=== PATIENT | female | born 1990 | race Caucasian/White ===

== ENCOUNTER 2023-09-11 17:53 | Emergency (ER) | payer BC, SELFPAY ==
[2023-09-11 17:54] VITALS: BP 174/112; PULSE 74; RESP 16; TEMP 36.6; O2SAT 100; BMI 23.4
[2023-09-11 18:12] VITALS: BP 174/118; PULSE 70; O2SAT 99
--- NOTE | 2023-09-11 18:12 | CT_ITS ---
PROCEDURE INFORMATION: Exam: CT Abdomen And Pelvis Without Contrast Exam date and time: 09/11/2023 6:28 PM Age: 33 years old Clinical indication: Abdominal pain; Additional info: Bilateral flank pain, hematuria (h/o partial hys) TECHNIQUE: Imaging protocol: Computed tomography of the abdomen and pelvis without contrast. Radiation optimization: All CT scans at this facility use at least one of these dose optimization techniques: automated exposure control; mA and/or kV adjustment per patient size (includes targeted exams where dose is matched to clinical indication); or iterative reconstruction. REPORTING DATA: Count of CT and Cardiac NM exams in prior 12 months: This patient has received 0 known CTs and 0 known cardiac nuclear medicine studies in the 12 months prior to the current study. COMPARISON: No relevant prior studies available. FINDINGS: Liver: Normal. No mass. Gallbladder and bile ducts: Nonvisualized gallbladder, possibly surgically absent. No ductal dilation. Pancreas: Normal. No ductal dilation. Spleen: Normal. No splenomegaly. Adrenal glands: Normal. No mass. Kidneys and ureters: Normal. No hydronephrosis. Stomach and bowel: Gastric bypass. Fecalized terminal ileum. No obstruction. No mucosal thickening. Appendix: Nonvisualized, possibly surgically absent. Intraperitoneal space: Minimal free fluid within the pelvis. No free air. No significant fluid collection. Vasculature: Unremarkable. No abdominal aortic aneurysm. Lymph nodes: Unremarkable. No enlarged lymph nodes. Urinary bladder: Unremarkable as visualized. Reproductive: Unremarkable as visualized. Bones/joints: Unremarkable. No acute fracture. Soft tissues: Unremarkable. IMPRESSION: 1. No urolithiasis or hydronephrosis. 2. Fecalized terminal ileum which may be seen with delayed transit.
--- NOTE | 2023-09-11 18:14 | HMH.EDGENADL ---
Discharge Plan Disposition Patient Disposition: Home, Self-Care Prescriptions Prescriptions: New sulfamethoxazole-trimethoprim [Bactrim DS] 800-160 mg tablet 1 tab PO BID 10 Days Qty: 20 0RF Referrals Follow up/Referrals: Felipe Hsieh MD [Primary Care Provider] - See instructions Activity Restrictions/Add. Instructions Additional Instructions/Restrictions: Your gross hematuria is out of proportion to what is typically seen in urinary tract infections but certainly could be secondary to inflammation in the setting of a urinary tract infection. We will treat you for pyelonephritis which is an infection of the kidney. I recommend that you follow-up with a urologist if you are not improving and return to the emergency department with any inability to get your urine out secondary to a clot. If you have a sudden worsening or severe worsening of your symptoms or intractable nausea and vomiting please return to the emergency department as there is some diagnostic uncertainty on your CT scan given the lack of visceral fat on your CT scan for interpretation. Clinical Impressions Clinical Impression: Pyelonephritis, Gross hematuria Instructions Patient Instructions: DI for Urinary Tract Infection (UTI), DI for Urinary Tract Infection in Children Discharge ED Provider: Angelia Pedersen General Adult HPI General Chief complaint: Urogenital-Female Stated complaint: blood in urine, back pain Time Seen by Provider: 09/11/23 17:56 Mode of Arrival: Ambulatory Source of Information: Patient Limitations: No Limitations Description of Symptoms (Recalled from ER Triage Doc. by RN): Presents to ED with c/o blood in urine and diffuse lower back pain. Patient reports urinary urgenc but denies other urinary symptoms. - fever. PMH: partial hysterectomy, Crohn's, Gastric sleeve. Denies taking meds [employer]. History of Present Illness HPI narrative: Patient is a 33-year-old female who has a history of gastric sleeve Jluis-en-Y Crohn's disease and multiple kidney stones presented today with bilateral flank pain and hematuria. States it feels very similar to kidney stone she had in the past. Denies any fevers dysuria frequency or urgency. Related Data Previous Rx's Medication Instructions Recorded sulfamethoxazole 800 1 tab PO BID 10 days #20 tabs 09/11/23 mg-trimethoprim 160 mg tablet (Bactrim DS) Allergies Allergy/AdvReac Type Severity Reaction Status Date / Time celecoxib [From Celebrex] Allergy Verified 09/11/23 18:09 cephalexin [From Keflex] Allergy Verified 09/11/23 18:09 gabapentin Allergy Verified 09/11/23 18:09 Penicillins Allergy Verified 09/11/23 18:09 PFSH [facility] Disclaimer: The information contained in this section may have been updated after the patient was seen, as this information can be updated by other users. Social History Smoking Status: Never smoker alcohol intake: never current occupational status: other Travel in the last 8 weeks: None ROS Obtained: Yes All systems reviewed & no additional complaints except as documented Physical Exam General General appearance: alert Respiratory Respiratory exam: Present normal lung sounds bilaterally Cardiovascular Cardiovascular exam: Present regular rate Abdominal Exam Abdominal exam: Present soft; Absent distention or tenderness Back Exam Back exam: Absent CVA tenderness (R) or CVA tenderness (L) Neurological Exam Neurological exam: Present oriented X3 Medical Decision Making Isaak Inquiry Pt receiving controlled substance: No Vital Signs: 09/11/23 17:54 09/11/23 18:12 09/11/23 18:46 Pulse Rate 70 81 Pulse Rate [Right] 74 Respiratory Rate 16 16 Blood Pressure 174/118 H 153/104 H Blood Pressure Mean 149 120 02 Sat by Pulse Oximetry 100 99 100 Oxygen Delivery Method Room Air Lab Data Lab results reviewed: Yes I reviewed the patient's lab results. Lab Results 09/11/23 18:01: Urine Color Red, Urine A
--- NOTE | 2023-09-11 18:24 | PC.NURSE ---
pt to CT
[2023-09-11 18:25] LABS: Microscopic, Urine URINE MICROSCOPIC (MICROSCOPIC)
[2023-09-11 18:36] LABS: Appearance,Urine TURBID (Clear); Blood, Urine 3+ (Negative); Color,Urine RED (Yellow); Glucose,Urine (UA) Negative (Negative); Ketones,Urine 1+ (Negative); Leukocyte Esterase,Urine 2+ (Negative); Nitrate,Urine POSITIVE (Negative); Protein,Urine 3+ (Negative)
--- NOTE | 2023-09-11 18:42 | PC.NURSE ---
Rounded on patient; call light within reach
[2023-09-11 18:43] LABS: Bilirubin,Urine 1+ (Negative)
[2023-09-11 18:43] LABS: Chloride 102 mmol/L (98-107); Potassium 3.7 mmoL/L (3.5-5.1); Sodium 139 mmol/L (136-145)
[2023-09-11 18:46] VITALS: BP 153/104; PULSE 81; RESP 16; O2SAT 100
[2023-09-11 18:46] LABS: Alanine Aminotransferase 19 U/L (12-78); Albumin/Globulin Ratio 1.6 (1.1-1.8); Alkaline Phosphatase 62 U/L (38-126); Anion Gap 12.7 mEq/L (5-15); Aspartate Amino Transferase 35 U/L (14-36); Bilirubin,Total 0.4 mg/dl (0.2-1.3); Blood Urea Nitrogen 14 mg/dl (7-17); Calcium 8.9 mg/dl (8.4-10.2); Carbon Dioxide 28 mmol/L (22.0-30.0); Creatinine Clearance Estimated 116 mL/min (50-200); Estimated Glomerular Filt Rate 97 ml/min (>60); GFR (African American) 117 ML/MIN (>60); Globulin 3.2 g/dL (1.3-3.2); Glucose 91 mg/dl (74-100); Total Protein,Serum 8.2 g/dl (6.3-8.2)
[2023-09-11 18:50] LABS: RBC,Urine TNTC #/hpf (0-3)
[2023-09-11 18:51] LABS: Bacteria,Urine Trace /lpf; Squamous Epithelial Cell,Urine Occasional #/hpf (0-5)
[2023-09-11 18:55] LABS: Basophils # 0.1 K/mm3 (0-0.2); Basophils % 0.4 % (0.1-2.0); Eosinophils # 0.3 K/mm3 (0.0-0.4); Eosinophils % 2.2 % (0.1-12.0); Hematocrit 42.2 % (37.0-47.0); Hemoglobin 14.2 g/dL (12.2-16.2); Lymphocytes # 3.4 K/mm3 (0.7-4.5); Lymphocytes % 23.6 % (10-50); Mean Corpuscular HGB Conc 33.6 g/dL (31.8-35.4); Mean Corpuscular Hemoglobin 30.7 pg (27.0-31.2); Mean Corpuscular Volume 91.4 fl (81-99); Mean Platelet Volume 7.7 fl (7.4-10.4); Monocytes # 0.7 K/mm3 (0.1-1.0); Monocytes % 4.5 % (1.7-9.3); Neutrophils # 9.9 K/mm3 (1.8-7.8); Neutrophils % 69.2 % (37.0-80.0); Platelet Count 339 K/mm3 (142-424); Red Blood Count 4.62 M/mm3 (4.20-5.40); White Blood Count 14.3 K/mm3 (4.8-10.8)
[2023-09-11 19:20] VITALS: BP 153/104; PULSE 74; RESP 16; TEMP 36.6; O2SAT 100
== END 2023-09-11 19:23 | disposition home or self-care (01) ==
PROVIDERS: Emergency Provider Student in an Organized Health Care Education/Training Program; PCP Pediatrics
DX: N10 Acute pyelonephritis (principal); B96.29 Other Escherichia coli [E. coli] as the cause of diseases classified elsewhere; R31.0 Gross hematuria; R10.30 Lower abdominal pain, unspecified; M54.59 Other low back pain; K50.919 Crohn's disease, unspecified, with unspecified complications; Z87.442 Personal history of urinary calculi
CPT/HCPCS: 74176; 80053; 81001; 85025; 87086; 96361; 96374; 96375; 99285; J2405

== ENCOUNTER 2023-09-27 08:06 | Emergency (ER) | payer BC, SELFPAY ==
[2023-09-27 08:20] VITALS: BP 134/96; PULSE 77; RESP 18; TEMP 36.7; O2SAT 100; BMI 23.1
--- NOTE | 2023-09-27 08:39 | EXP.UTC ---
Discharge Plan Disposition Patient Disposition: Home, Self-Care Condition: Good Prescriptions Prescriptions: New azithromycin [Zithromax] 250 mg tablet 250 mg PO UD DOSE PK Qty: 6 0RF Rx Instructions: Take two (2) tablets today, then one (1) tablet days #2 thru #5 lxguicrsmpuwmmy-fdqtqilhs-TB [Bromfed DM] 2-30-10 mg/5 mL Syrup 5 ml PO Q6H PRN (Reason: Cough) Qty: 240 0RF methylprednisolone 4 mg Tablets,Dose Pack 4 mg PO DIRECTED Qty: 21 0RF ondansetron 4 mg Tablet,Disintegrating 4 mg PO Q8H PRN (Reason: Nausea) Qty: 12 0RF Referrals Follow up/Referrals: Felipe Hsieh MD [Primary Care Provider] - See instructions Activity Restrictions/Add. Instructions Additional Instructions/Restrictions: Drink plenty of fluids. Take tylenol or ibuprofen for pain or fever. Take the medications as directed. Follow up with your regular doctor. GO TO THE ER FOR ANY WORSENING SYMPTOMS Clinical Impressions Clinical Impression: Acute bronchitis Stand Alone Forms Stand Alone Forms: Work/School Release Instructions Patient Instructions: Acute Bronchitis, DI for Acute Bronchitis Discharge ED Provider: Elvis Christine [facility] General Stated complaint: head congestion,runny nose,cough,sore throat Time Seen by Provider: 09/27/23 08:39 History of Present Illness Provider Complaint: She states that for the past 5 days she has had chest congestion and a productive cough. Related Data Previous Rx's Medication Instructions Recorded azithromycin 250 mg tablet 250 mg PO UD DOSE PK #6 tabs 09/27/23 (Zithromax) vsrjbghgextpcdo-vigigicuujpotit-RT 5 ml PO Q6H PRN Cough #240 mL 09/27/23 2 mg-30 mg-10 mg/5 mL oral syrup (Bromfed DM) methylprednisolone 4 mg tablets in 4 mg PO DIRECTED #21 tabs 09/27/23 a dose pack ondansetron 4 mg disintegrating 4 mg PO Q8H PRN Nausea #12 tabs 09/27/23 tablet Allergies Allergy/AdvReac Type Severity Reaction Status Date / Time celecoxib [From Celebrex] Allergy Verified 09/27/23 08:58 cephalexin [From Keflex] Allergy Verified 09/27/23 08:58 gabapentin Allergy Verified 09/27/23 08:58 Penicillins Allergy Verified 09/27/23 08:58 [facility] Disclaimer: The information contained in this section may have been updated after the patient was seen, as this information can be updated by other users. Social History Smoking Status: Never smoker alcohol intake: never current occupational status: other Travel in the last 8 weeks: None ROS Obtained: Yes All systems reviewed & no additional complaints except as documented Constitutional Constitutional: Reports chills and Reports fever(s) Eyes Eyes: Denies eye discharge ENT Ears, Nose, Mouth, and Throat: Reports as per HPI Cardiovascular Cardiovascular: Denies chest pain Respiratory Respiratory: Denies shortness of breath, Reports chest congestion, Reports cough, Denies stridor and Denies wheezing Gastrointestinal Gastrointestingal: Reports nausea; Denies abdominal pain, constipation, cramping, diarrhea or vomiting Musculoskeletal Musculoskeletal: Denies arthralgias Integumentary/Breasts Skin/Breast: Denies rash Neurologic Neurologic: Denies paresthesias Allergic/Immunologic Allergic/Immunologic: Denies wheezing Physical Exam General General appearance: alert and in no apparent distress Eye Eye exam: Present normal appearance, PERRL and EOMI ENT ENT exam: Present mucous membranes moist and normal external ear exam Expanded ENT Exam External ear exam: Present normal external inspection TM/Canal exam: Bilateral TM: erythema and bulging Nose exam: Absent sinus tenderness Nasal speculum exam: Bilateral: normal Mouth exam: Present normal external inspection; Absent drooling Teeth exam: Present normal inspection Throat exam: Present tonsillar erythema and tonsillomegaly Neck Neck exam: Present normal inspection, full ROM and t
[2023-09-27 08:46] LABS: Apearance,Urine Clear (Clear); Blood, Urine Negative (Negative); Color,Urine Dark Yellow (Yellow); Glucose,Urine (UA) Negative (Negative); Ketones,Urine Negative (Negative); Protein,Urine 3+ (Negative); Specific Gravity, Urine 1.025 (1.005-1.030)
[2023-09-27 08:47] LABS: Bilirubin,Urine Negative (Negative); UTC Leukocyte Esterase,Urine Negative (Negative); UTC Nitrate,Urine Negative (Negative); Urobilinogen,Urine 1 EU/dl (0.2)
[2023-09-27 08:50] LABS: UTC Influenza A Antigen Negative (Negative); UTC Influenza B Antigen Negative (Negative)
[2023-09-27 09:57] VITALS: BP 134/96; PULSE 77; RESP 18; TEMP 36.7; O2SAT 100
== END 2023-09-27 09:57 | disposition home or self-care (01) ==
PROVIDERS: Emergency Provider Nurse Practitioner Family; PCP Pediatrics
DX: J20.9 Acute bronchitis, unspecified (principal); R50.9 Fever, unspecified; R05.8 Other specified cough; R09.81 Nasal congestion; R09.89 Other specified symptoms and signs involving the circulatory and respiratory systems; R07.0 Pain in throat; R11.0 Nausea
CPT/HCPCS: 81003; 87635; 87804; 99204; 99212; G0463

== ENCOUNTER 2024-06-09 08:52 | Emergency (ER) | payer BC, SELFPAY ==
[2024-06-09 09:00] VITALS: BP 144/99; PULSE 74; RESP 18; TEMP 36.5; O2SAT 100; BMI 23.1
--- NOTE | 2024-06-09 09:05 | EXP.UTC ---
Discharge Plan Disposition Patient Disposition: Home, Self-Care Condition: Good Prescriptions Prescriptions: New doxycycline monohydrate 100 mg tablet 100 mg PO BID Qty: 20 0RF prednisone 20 mg tablet 20 mg PO BID Qty: 10 0RF albuterol sulfate [Ventolin HFA] 90 mcg/actuation HFA aerosol inhaler 2 puff inhalation QIDP PRN (Reason: Wheezing) Qty: 1 0RF dewzictxryluwvw-lullesznh-MQ [Bromfed DM] 2-30-10 mg/5 mL syrup 5 ml PO Q4H PRN (Reason: Cough) Qty: 120 0RF No Action verapamil 40 mg tablet 40 mg PO DAILY cyanocobalamin (vitamin B-12) 1,000 mcg/mL solution 1,000 mcg IM WEEKLY folic acid 1 mg tablet 1 mg PO DAILY acarbose 25 mg tablet 25 mg PO DAILY Referrals Follow up/Referrals: Felipe Hsieh MD [Primary Care Provider] - See instructions Activity Restrictions/Add. Instructions Additional Instructions/Restrictions: Will call with results of respiratory panel Follow up with Dr Hsieh if not improving Clinical Impressions Clinical Impression: Sinusitis, Bronchitis Instructions Patient Instructions: DI for Sinusitis Print Language Print Language: Slovak Discharge ED Provider: Korina Frazier [facility] HPI General Stated complaint: congestion ear pain soa fever 101.2 Time Seen by Provider: 06/09/24 09:14 History of Present Illness Provider Complaint: Fever, ear pain, cough, congestion, sore throat X 3 days. Cough productive. Nausea but no vomiting or diarrhea. Glands feel swollen. Onset (ago): day(s) (3) Relieving factors: none Exacerbating factors: none Associated symptoms: denies other symptoms Treatments prior to arrival: none Related Data Home Medications ?Medication ?Instructions ?Recorded ?Confirmed acarbose 25 mg tablet 25 mg PO DAILY 06/09/24 06/09/24 cyanocobalamin (vitamin B-12) 1,000 mcg IM WEEKLY 06/09/24 06/09/24 1,000 mcg/mL injection solution folic acid 1 mg tablet 1 mg PO DAILY 06/09/24 06/09/24 verapamil 40 mg tablet 40 mg PO DAILY 06/09/24 06/09/24 Previous Rx's ?Medication ?Instructions ?Recorded albuterol sulfate 90 mcg/actuation 2 puff inhalation QIDP PRN 06/09/24 aerosol inhaler (Ventolin HFA) Wheezing #1 ea ejrapfutnxvcjeo-fmwgfvbhkvhefpg-OJ 5 ml PO Q4H PRN Cough #120 mL 06/09/24 2 mg-30 mg-10 mg/5 mL oral syrup (Bromfed DM) doxycycline monohydrate 100 mg 100 mg PO BID #20 tabs 06/09/24 tablet prednisone 20 mg tablet 20 mg PO BID #10 tabs 06/09/24 Allergies Allergy/AdvReac Type Severity Reaction Status Date / Time celecoxib [From Celebrex] Allergy Verified 09/27/23 08:58 cephalexin [From Keflex] Allergy Verified 09/27/23 08:58 ciprofloxacin Allergy Verified 06/09/24 09:12 gabapentin Allergy Verified 09/27/23 08:58 Penicillins Allergy Verified 09/27/23 08:58 PFS PFS Disclaimer: The information contained in this section may have been updated after the patient was seen, as this information can be updated by other users. Medical History (Updated 06/09/24 @ 09:32 by SAMMIE Ahmadi) Hypoglycemia Diabetes mellitus, type 2 Asthma Hypertension Surgical History (Updated 06/09/24 @ 09:12 by Ilene Stover RN) H/O gastric sleeve History of hysterectomy History of cholecystectomy History of appendectomy Social History Smoking Status: Never smoker alcohol intake: never current occupational status: other Travel in the last 8 weeks: None ROS Obtained: Yes All systems reviewed & no additional complaints except as documented Constitutional Constitutional: Reports body ache and Reports fever(s) ENT Ears, Nose, Mouth, and Throat: Reports sinus pain and Reports sore throat Respiratory Respiratory: Reports cough Physical Exam General General appearance: alert and in no apparent distress Head Head exam: atraumatic, normocephalic and normal inspection Eye Eye exam: Present normal appearance, PERRL and
[2024-06-09 09:23] LABS: Adenovirus,PCR Not Detected (NotDetected); Bordetella Pertussis Not Detected (NotDetected); Chlamydophila Pneumoniae, PCR Not Detected (NotDetected); Coronavirus 19, PCR Not Detected (NotDetected); Coronavirus 229E Not Detected (NotDetected); Coronavirus NL63 Not Detected (NotDetected); Coronavirus OC43 Not Detected (NotDetected); Coronovirus HKU1,PCR Not Detected (NotDetected); Human Metapneumovirus Not Detected (NotDetected); Influenza A, PCR Not Detected (NotDetected); Influenza AH1, 2009 Not Detected (NotDetected); Influenza AH1, PCR Not Detected (NotDetected); Influenza AH3,PCR Not Detected (NotDetected); Influenza B, PCR Not Detected (NotDetected); Mycoplasma Pneumoniae, PCR Not Detected (NotDetected); Parainfluenza 1, PCR Not Detected (NotDetected); Parainfluenza 2, PCR Not Detected (NotDetected); Parainfluenza 3, PCR Not Detected (NotDetected); Parainfluenza 4, PCR Not Detected (NotDetected); Respiratory Syncytial Virus Not Detected (NotDetected)
[2024-06-09 09:30] VITALS: BP 144/99; PULSE 74; RESP 18; TEMP 36.5; O2SAT 100
[2024-06-09 09:30] LABS: UTC Strep Screen (Rapid) Negative (Negative)
[2024-06-09 12:30] LABS: Rhinovirus/Enterovirus Detected (NotDetected)
== END 2024-06-09 09:35 | disposition home or self-care (01) ==
PROVIDERS: Emergency Provider Physician Assistant; PCP Pediatrics
DX: J20.9 Acute bronchitis, unspecified (principal); J01.90 Acute sinusitis, unspecified; B34.1 Enterovirus infection, unspecified; R50.9 Fever, unspecified; R07.0 Pain in throat
CPT/HCPCS: 87581; 87632; 87635; 87798; 87880; 99212; 99214; G0463

== ENCOUNTER 2024-07-12 18:25 | Emergency (ER) | payer BC, SELFPAY ==
[2024-07-12 18:32] VITALS: BP 164/113; PULSE 73; RESP 18; TEMP 36.7; O2SAT 100; BMI 22.8
[2024-07-12 18:36] VITALS: BP 164/113; PULSE 72; O2SAT 100
--- NOTE | 2024-07-12 18:49 | ED_ITS ---
Discharge Plan Disposition Patient Disposition: Home, Self-Care Condition: Good Prescriptions Prescriptions: No Action verapamil 40 mg tablet 40 mg PO DAILY cyanocobalamin (vitamin B-12) 1,000 mcg/mL solution 1,000 mcg IM WEEKLY folic acid 1 mg tablet 1 mg PO DAILY acarbose 25 mg tablet 25 mg PO DAILY doxycycline monohydrate 100 mg tablet 100 mg PO BID Qty: 20 0RF prednisone 20 mg tablet 20 mg PO BID Qty: 10 0RF albuterol sulfate [Ventolin HFA] 90 mcg/actuation HFA aerosol inhaler 2 puff inhalation QIDP PRN (Reason: Wheezing) Qty: 1 0RF qksnqwdassvcumk-zsdphxete-KQ [Bromfed DM] 2-30-10 mg/5 mL syrup 5 ml PO Q4H PRN (Reason: Cough) Qty: 120 0RF Referrals Follow up/Referrals: Felipe Hsieh MD [Primary Care Provider] - See instructions Gilbert Haas MD [Referring] - See instructions (Please follow-up with your [facility] provider as directed) Activity Restrictions/Add. Instructions Additional Instructions/Restrictions: Follow-up with Dr. Haas in the upcoming days, watch for any redness, swelling, drainage or worsening pain around your incision site, please return to the emergency department with any of those new symptoms. Treat with ibuprofen and Tylenol, follow postoperative restrictions as directed by your surgeon. Clinical Impressions Clinical Impression: Post-op pain Instructions Patient Instructions: DI for Postoperative Pain Print Language Print Language: Greenlandic Discharge ED Provider: Russ Theodore General Adult HPI <SAMMIE Pantoja - Last Filed: 07/12/24 20:24> General Chief complaint: Fever Stated complaint: ovary surgery 07/03 now with fever,knot left side Time Seen by Provider: 07/12/24 18:37 Mode of Arrival: Ambulatory Source of Information: Patient Limitations: No Limitations Description of Symptoms (Recalled from ER Triage Doc. by RN): PT PRESENTS TO THE ER FOR FEVER AND CHILLS THAT STARTED THIS AM, STATES TEMP WAS 100.8, STATES SHE HAD L OVARY AND FALLOPIAN TUBE REMOVED ON THE BY DR HAAS AT [facility], STATES SHE HAS A KNOT AT HER INCISION SITE NOTED ON HER L SIDE OF HER ABDOMEN, STATES IT IS PAINFUL TO TOUCH AT TIMES BUT DENIES REDNESS OR DRAINAGE, STATES SHE HASN'T BEEN FOLLOWING WEIGHT RESTRICTIONS History of Present Illness HPI narrative: 4-year-old female presents emergency department accompanied by her significant other, for a 1 day history of fever, chills, myalgias, pain in her LLQ, Tmax was at 100.8 ?F, patient is status post left oophorectomy and salpingectomy for endometriosis performed by Dr. Haas ([place]), on 07/03, denies any redness, drainage around the incision site, she does complain of a knot , around the incision site, with pain that is worse with movements, she tells me that she has not been following her postoperative restrictions, she states that she had a no more than 10 pound weight limit, but has lifted heavier this week , denies any overt pain when lifting. She denies any chest pain, shortness of breath, cough, congestion, sore throat, does admit to recent sick contacts (kids), denies abdominal pain, except for incisional type pain, denies any constipation, diarrhea, urinary type symptomatology. Other past medical history consistent with hypertension, endometriosis, she admits to hypoglycemia, but denies any history of diabetes, anemia, she is a non-smoker, denies any alcohol or drug use. She states that her postoperative follow-up with her [facility] surgeon is not until July. Initial triage vitals are grossly unremarkable. Related Data Home Medications ?Medication ?Instructions ?Recorded ?Confirmed acarbose 25 mg tablet 25 mg PO DAILY 06/09/24 07/12/24 cyanocobalamin (vitamin B-12) 1,000 mcg IM WEEKLY 06/09/24 07/12/24 1,000 mcg/mL injection solution folic acid 1 mg tablet 1 mg PO DAILY 06/09/24 07/12/24 verapamil 40 mg tablet 40 mg PO DAILY 06/09/24 07/12/24 Previous Rx's ?Medication ?Instructions ?Recorded albuterol sulfate 90 mcg/actuation 2 puff inhalation QIDP PRN 06/09/24 aerosol inhaler (Ventolin HFA) Wheezing #1 ea pijfmbzbbwldrlj-stpaqzpbbdboibx-ZA 5 ml PO Q4H PRN Cough #120 mL 06/09/24 2 mg-30 mg-10 mg/5 mL oral syrup (Bromfed DM) doxycycline monohydrate 100 mg 100 mg PO BID #20 tabs 06/09/24 tablet prednisone 20 mg tablet 20 mg PO BID #10 tabs 06/09/24 Allergies Allergy/AdvReac Type Severity Reaction Status Date / Time celecoxib [From Celebrex] Allergy Unknown Verified 07/12/24 18:48 allergy reaction cephalexin [From Keflex] Allergy Unknown Verified 07/12/24 18:48 allergy reaction ciprofloxacin Allergy Unknown Verified 07/12/24 18:48 allergy reaction gabapentin Allergy Unknown Verified 07/12/24 18:48 allergy reaction Penicillins Allergy Unknown Verified 07/12/24 18:48 allergy reaction PFSH <SAMMIE Pantoja - Last Filed: 07/12/24 20:24> PFS Disclaimer: The information contained in this section may have been updated after the patient was seen, as this information can be updated by other users. Medical History (Updated 07/12/24 @ 20:24 by SAMMIE Pantoja) Hypoglycemia Diabetes mellitus, type 2 Asthma Hypertension Surgical History H/O gastric sleeve History of hysterectomy History of cholecystectomy History of appendectomy Social History Smoking Status: Never smoker alcohol intake: never current occupational status: other Travel in the last 8 weeks: None <SAMMIE Pantoja - Last Filed: 07/12/24 20:24> ROS Obtained: Yes All systems reviewed & no additional complaints except as documented Physical Exam <SAMMIE Pantoja - Last Filed: 07/12/24 20:24> General General appearance: alert, in no apparent distress and anxious Head Head exam: atraumatic and normocephalic Eye Eye exam: Present PERRL and EOMI ENT ENT exam: Present mucous membranes moist Neck Neck exam: Present normal inspection Chest Chest inspection: Present normal inspection and symmetric chest wall rise Respiratory Respiratory exam: Present normal lung sounds bilaterally; Absent respiratory distress Cardiovascular Cardiovascular exam: Present regular rate and normal rhythm Abdominal Exam Abdominal exam: Present soft, tenderness and incision; Absent guarding, rebound or rigidity Comment: There is minimal to mild incisional type pain, with palpation around the patient's incision site in the LLQ Extremities Exam Extremities exam: Present normal inspection Neurological Exam Neurological exam: Present alert and oriented X3 Psychiatric Psychiatric exam: Present normal affect Skin Skin exam: Present warm, dry, intact and other (Patient's incision site from the nephrectomy/salpingectomy located on the LLQ, there is no erythema, no evidence of any wound dehiscence or drainage, the wound looks well epithelialized, there is some soft tissue and be felt with palpation, that most likely reflects a seroma, there is no fluctuance,); Absent rash or erythema Medical Decision Making <SAMMIE Pantoja - Last Filed: 07/12/24 20:24> Medical Records Medical records reviewed: Yes I reviewed the patient's medical records. Screening: Per USPSTF and CDC recommendations, given the prevalence of disease in our region, it is our hospital?s policy to screen for HIV and viral Hepatitis for all patients aged 18 and over and those with ongoing risk factors. [place] Inquiry Pt receiving controlled substance: No Vital Signs: 07/12/24 18:32 07/12/24 18:36 07/12/24 18:47 Temperature 98.0 F Temperature Source Oral Oral Pulse Rate 72 Pulse Rate [Left Radial] 73 Respiratory Rate 18 Blood Pressure 164/113 H Blood Pressure [Right Arm] 164/113 H Blood Pressure Mean [Right Arm] 130 Blood Pressure Source [Right Arm] Automatic Cuff Blood Pressure Position [Right Arm] Sitting 02 Sat by Pulse Oximetry 100 100 07/12/24 19:31 07/12/24 20:26 Temperature 98.8 F Temperature Source Oral Pulse Rate 62 68 Pulse Rate [Left Radial] Respiratory Rate 16 Blood Pressure 135/81 138/91 H Blood Pressure [Right Arm] Blood Pressure Mean [Right Arm] Blood Pressure Source [Right Arm] Blood Pressure Position [Right Arm] 02 Sat by Pulse Oximetry 99 Lab Data Lab results reviewed: Yes I reviewed the patient's lab results. Lab Results 07/12/24 18:45: WBC 11.0 H, RBC 4.35, Hgb 13.6, Hct 41.4, MCV 95.2, MCH 31.3 H, MCHC 32.9, RDW 13.1, Plt Count 398, MPV 8.2, Neut % (Auto) 57.3, Lymph % (Auto) 30.7, Riley % (Auto) 6.1, Eos % (Auto) 4.8, Baso % (Auto) 1.1, Neut # (Auto) 6.3, Lymph # (Auto) 3.4, Riley # (Auto) 0.7, Eos # (Auto) 0.5 H, Baso # (Auto) 0.1, Sodium 139, Potassium 3.9, Chloride 106, Carbon Dioxide 28, Anion Gap 8.9, BUN 17, Creatinine 0.80, Estimated Creat Clear 98, Estimated GFR 83, Est GFR ( Amer) 100, Glucose 85, Calcium 9.0, Total Bilirubin 0.5, AST 24, ALT 19, Alkaline Phosphatase 60, C-Reactive Protein < 0.3, Total Protein 7.5, Albumin 4.7, Globulin 2.8, Albumin/Globulin Ratio 1.7, SARS-CoV-2 (PCR) Not detected, HIV 1&2 Antibody Rapid Nonreactive, Influenza A Untype (PCR) Not detected, Influenza Type B (PCR) Not detected 07/12/24 19:11: Urine Color Yellow, Urine Appearance Clear, Urine pH 6.0, Ur Specific [place] 1.025, Urine Protein Negative, Urine Glucose (UA) Negative, Urine Ketones Negative, Urine Blood Negative, Urine Nitrate Negative, Urine Bilirubin Negative, Urine Urobilinogen 0.2, Ur Leukocyte Esterase Negative, Urine RBC Occasional, Urine WBC 3-5, Ur Squamous Epith Cells 5-10, Urine Bacteria 1+, Urine Mucus 4+ 07/12/24 18:45 07/12/24 18:45 Orders (Tests/Meds): ORDERS Category Date Time Status POCUS Point of Care (ER Only) Stat Exams 07/12/24 18:48 Completed CRP [C-Reactive Protein] Stat Lab 07/12/24 18:45 Completed Complete Blood Count Auto Diff Stat Lab 07/12/24 18:45 Completed Comprehensive Metabolic Panel Stat Lab 07/12/24 18:45 Completed HIV (1&2) Antibody Rapid Stat Lab 07/12/24 18:45 Completed Hep C Ab with Reflex to RNA Stat Lab 07/12/24 18:45 Received Rapid PCR Covid and Flu A/B Stat Lab 07/12/24 18:45 Completed Urinalysis and Microscopic Stat Lab 07/12/24 19:11 Completed Medical Decision Narrative: 34-year-old female presents to the emergency department with left incisional type pain, URI/fever, differential diagnose include but not limited to postoperative infection, postoperative seroma, cellulitis, URI, anxiety type reaction, incisional/ventral hernia I discussed this patient's case with the attending physician Dr. Theodore Obtain CBC CMP, rapid PCR COVID and flu, urinalysis, CRP as well as POCUS soft tissue/incision. CBC is notable for mild leukocytosis at 11 otherwise unremarkable CMP grossly unremarkable Urinalysis is notable for negative nitrites, negative leukocyte esterase, occasional RBCs, +1 bacteria, 5-10 epithelial cells, otherwise unremarkable. COVID 19 negative, influenza A negative, influenza B negative <Russ Theodore MD - Last Filed: 07/14/24 07:22> Vital Signs: 07/12/24 18:32 07/12/24 18:36 07/12/24 18:47 Temperature 98.0 F Temperature Source Oral Oral Pulse Rate 72 Pulse Rate [Left Radial] 73 Respiratory Rate 18 Blood Pressure 164/113 H Blood Pressure [Right Arm] 164/113 H Blood Pressure Mean [Right Arm] 130 Blood Pressure Source [Right Arm] Automatic Cuff Blood Pressure Position [Right Arm] Sitting 02 Sat by Pulse Oximetry 100 100 07/12/24 19:31 07/12/24 20:26 Temperature 98.8 F Temperature Source Oral Pulse Rate 62 68 Pulse Rate [Left Radial] Respiratory Rate 16 Blood Pressure 135/81 138/91 H Blood Pressure [Right Arm] Blood Pressure Mean [Right Arm] Blood Pressure Source [Right Arm] Blood Pressure Position [Right Arm] 02 Sat by Pulse Oximetry 99 Lab Data Lab Results 07/12/24 18:45: WBC 11.0 H, RBC 4.35, Hgb 13.6, Hct 41.4, MCV 95.2, MCH 31.3 H, MCHC 32.9, RDW 13.1, Plt Count 398, MPV 8.2, Neut % (Auto) 57.3, Lymph % (Auto) 30.7, Riley % (Auto) 6.1, Eos % (Auto) 4.8, Baso % (Auto) 1.1, Neut # (Auto) 6.3, Lymph # (Auto) 3.4, Riley # (Auto) 0.7, Eos # (Auto) 0.5 H, Baso # (Auto) 0.1, Sodium 139, Potassium 3.9, Chloride 106, Carbon Dioxide 28, Anion Gap 8.9, BUN 17, Creatinine 0.80, Estimated Creat Clear 98, Estimated GFR 83, Est GFR ( Amer) 100, Glucose 85, Calcium 9.0, Total Bilirubin 0.5, AST 24, ALT 19, Alkaline Phosphatase 60, C-Reactive Protein < 0.3, Total Protein 7.5, Albumin 4.7, Globulin 2.8, Albumin/Globulin Ratio 1.7, SARS-CoV-2 (PCR) Not detected, HIV 1&2 Antibody Rapid Nonreactive, Influenza A Untype (PCR) Not detected, Influenza Type B (PCR) Not detected 07/12/24 19:11: Urine Color Yellow, Urine Appearance Clear, Urine pH 6.0, Ur Specific [place] 1.025, Urine Protein Negative, Urine Glucose (UA) Negative, Urine Ketones Negative, Urine Blood Negative, Urine Nitrate Negative, Urine Bilirubin Negative, Urine Urobilinogen 0.2, Ur Leukocyte Esterase Negative, Urine RBC Occasional, Urine WBC 3-5, Ur Squamous Epith Cells 5-10, Urine Bacteria 1+, Urine Mucus 4+ Orders (Tests/Meds): ORDERS Category Date Time Status POCUS Point of Care (ER Only) Stat Exams 07/12/24 18:48 Completed CRP [C-Reactive Protein] Stat Lab 07/12/24 18:45 Completed Complete Blood Count Auto Diff Stat Lab 07/12/24 18:45 Completed Comprehensive Metabolic Panel Stat Lab 07/12/24 18:45 Completed HIV (1&2) Antibody Rapid Stat Lab 07/12/24 18:45 Completed Hep C Ab with Reflex to RNA Stat Lab 07/12/24 18:45 Received Rapid PCR Covid and Flu A/B Stat Lab 07/12/24 18:45 Completed Urinalysis and Microscopic Stat Lab 07/12/24 19:11 Completed Medical Decision Narrative: 34-year-old female presents to the emergency department with left incisional type pain, URI/fever, differential diagnose include but not limited to postoperative infection, postoperative seroma, cellulitis, URI, anxiety type reaction, incisional/ventral hernia I discussed this patient's case with the attending physician Dr. Theodore Obtain CBC CMP, rapid PCR COVID and flu, urinalysis, CRP as well as POCUS soft tissue/incision. CBC is notable for mild leukocytosis at 11 otherwise unremarkable CMP grossly unremarkable Urinalysis is notable for negative nitrites, negative leukocyte esterase, occasional RBCs, +1 bacteria, 5-10 epithelial cells, otherwise unremarkable. COVID 19 negative, influenza A negative, influenza B negative I was consulted by the LETTY, and we discussed the complexity of the problems being addressed. I approved the treatment and management plan for this patient's care in the Emergency Department, thus performing a substantive portion of the medical decision making. Russ Theodore MD Procedures <SAMMIE Pantoja - Last Filed: 07/12/24 20:24> Limited Ultrasound Indication:: Limited MSK/soft tissue ultrasound Indication: [-Soft tissue -Fever Identified structures: Location: LLQ Findings: [-Normal soft tissue ultrasound] Impression: [-Normal limited soft tissue ultrasound] Images [were saved] to permanent archive The study [was] technically adequate <Russ Theodore MD - Last Filed: 07/14/24 07:22> Limited Ultrasound Indication:: Limited soft tissue ultrasound Indication: Soft tissue swelling, postoperative Identified structures: Location: Abdomen Findings: Minimal amount of soft tissue edema, no notable fluid collection Impression: Minimal amount of soft tissue edema, no notable fluid collection. Likely serous fluid, low concern for abscess or infection Images were saved to permanent archive The study was technically adequate Soft Tissue CPT Codes: CPT Neck: 74851-30 CPT Upper extremity: 14186-20 CPT Axilla: 39199-18 CPT Chest wall: 02075-71 CPT Breast: 07604-48-KB/LT (complete), 35597-30-ZE/LT (limited), CPT Upper Back: 09348-49 CPT Lower Back: 91993-32 CPT Abdominal Wall: 38346-70 CPT Pelvic Wall: 10287-44 CPT Lower Extremity: 78156-34 CPT Other Soft Tissue: 18606-12 This study was performed by me, and I personally interpreted all images/videos. Based on my clinical judgement, these images were adequate and did not necessitate further imaging. Critical Care <SAMMIE Pantoja - Last Filed: 07/12/24 20:24> Critical Care Time Critical Care Time: No
[2024-07-12 18:53] LABS: Coronavirus 19, PCR Not Detected (NotDetected); Influenza A, PCR Not Detected (NotDetected); Influenza B, PCR Not Detected (NotDetected)
[2024-07-12 18:57] LABS: Basophils # 0.1 K/mm3 (0-0.2); Basophils % 1.1 % (0.1-2.0); Eosinophils # 0.5 K/mm3 (0.0-0.4); Eosinophils % 4.8 % (0.1-12.0); Hematocrit 41.4 % (37.0-47.0); Hemoglobin 13.6 g/dL (12.2-16.2); Lymphocytes # 3.4 K/mm3 (0.7-4.5); Lymphocytes % 30.7 % (10-50); Mean Corpuscular HGB Conc 32.9 g/dL (31.8-35.4); Mean Corpuscular Hemoglobin 31.3 pg (27.0-31.2); Mean Corpuscular Volume 95.2 fl (81-99); Mean Platelet Volume 8.2 fl (7.4-10.4); Monocytes # 0.7 K/mm3 (0.1-1.0); Monocytes % 6.1 % (1.7-9.3); Neutrophils # 6.3 K/mm3 (1.8-7.8); Neutrophils % 57.3 % (37.0-80.0); Platelet Count 398 K/mm3 (142-424); Red Blood Count 4.35 M/mm3 (4.20-5.40); Red Cell Distribution Width 13.1 % (11.5-17.5)
[2024-07-12 19:00] LABS: Albumin Level 4.7 g/dl (3.5-5.0); Chloride 106 mmol/L (98-107); Potassium 3.9 mmoL/L (3.5-5.1); Sodium 139 mmol/L (136-145)
[2024-07-12 19:03] LABS: Alanine Aminotransferase 19 U/L (12-78); Albumin/Globulin Ratio 1.7 (1.1-1.8); Alkaline Phosphatase 60 U/L (38-126); Anion Gap 8.9 mEq/L (5-15); Aspartate Amino Transferase 24 U/L (14-36); Bilirubin,Total 0.5 mg/dl (0.2-1.3); Blood Urea Nitrogen 17 mg/dl (7-17); Carbon Dioxide 28 mmol/L (22.0-30.0); Creatinine Clearance Estimated 98 mL/min (50-200); Estimated Glomerular Filt Rate 83 ml/min (>60); GFR (African American) 100 ML/MIN (>60); Globulin 2.8 g/dL (1.3-3.2); Glucose 85 mg/dl (74-100); Total Protein,Serum 7.5 g/dl (6.3-8.2)
[2024-07-12 19:17] LABS: Appearance,Urine CLEAR (Clear); Bilirubin,Urine Negative (Negative); Blood, Urine Negative (Negative); Color,Urine YELLOW (Yellow); Glucose,Urine (UA) Negative (Negative); Ketones,Urine Negative (Negative); Leukocyte Esterase,Urine Negative (Negative); Microscopic, Urine URINE MICROSCOPIC (MICROSCOPIC); Nitrate,Urine Negative (Negative); Protein,Urine Negative (Negative); Specific Gravity, Urine 1.025 (1.005-1.030); Urobilinogen,Urine 0.2 EU/dl (0.2)
[2024-07-12 19:17] LABS: C-Reactive Protein < 0.3 mg/L (0-4)
[2024-07-12 19:29] LABS: Bacteria,Urine 1+ /lpf; RBC,Urine Occasional #/hpf (0-3)
[2024-07-12 19:30] LABS: Mucus,Urine 4+ /lpf
[2024-07-12 19:31] VITALS: BP 135/81; PULSE 62; O2SAT 99
[2024-07-12 19:59] LABS: HIV (1&2) Antibody Rapid NONREACTIVE (NONREACTIVE)
[2024-07-12 20:26] VITALS: BP 138/91; PULSE 68; RESP 16; TEMP 37.1; O2SAT 91
[2024-07-14 08:17] LABS: HCV Ab Non Reactive (Non Reactive)
== END 2024-07-12 20:31 | disposition home or self-care (01) ==
PROVIDERS: Physician Assistant; Emergency Provider Emergency Medicine; PCP Pediatrics
DX: G89.18 Other acute postprocedural pain (principal); Z90.721 Acquired absence of ovaries, unilateral; N80.9 Endometriosis, unspecified; R50.9 Fever, unspecified
CPT/HCPCS: 80053; 81001; 85025; 86140; 86803; 87389; 87636; 99284

== ENCOUNTER 2024-09-21 08:30 | Emergency (ER) | payer BC, SELFPAY ==
[2024-09-21 08:44] VITALS: BP 149/98; PULSE 71; RESP 18; TEMP 37.1; O2SAT 100; BMI 23.0
--- NOTE | 2024-09-21 08:45 | XR_ITS ---
FINAL REPORT CLINICAL HISTORY: Right sided rib pain COMPARISON: None FINDINGS: RIGHT RIBS WITH CHEST Chest: The heart is normal in size. The mediastinum is normal. The lungs are clear. There is no pneumothorax. Ribs: 2 views demonstrate no acute displaced fracture. The visualized bony structures are well aligned. IMPRESSION: No acute process. No obvious rib fracture. Reviewed, Interpreted and Dictated by Aravind Valdes III, MD Transcribed by Joan Kauffman Authenticated and [facility]
[2024-09-21 08:50] LABS: Apearance,Urine Cloudy (Clear); Bilirubin,Urine Negative (Negative); Blood, Urine Negative (Negative); Color,Urine Yellow (Yellow); Glucose,Urine (UA) Negative (Negative); Ketones,Urine Negative (Negative); PH,Urine 6.5 (5.0-8.5); Protein,Urine Negative (Negative); Specific Gravity, Urine 1.025 (1.005-1.030); UTC Leukocyte Esterase,Urine Negative (Negative); UTC Nitrate,Urine Negative (Negative); Urobilinogen,Urine 1 EU/dl (0.2)
--- NOTE | 2024-09-21 09:28 | EXP.UTC ---
Discharge Plan Disposition Patient Disposition: Home, Self-Care Condition: Good Prescriptions Prescriptions: New ondansetron 4 mg Tablet,Disintegrating 4 mg PO Q8H PRN (Reason: Nausea) Qty: 12 0RF dicyclomine 20 mg tablet 20 mg PO TID PRN (Reason: abdominal pain) Qty: 20 0RF No Action lisinopril 20 mg tablet 20 mg PO DAILY Patient Comments: TAKE 1 TABLET BY MOUTH EVERY DAY Referrals Follow up/Referrals: Felipe Hsieh MD [Primary Care Provider] - See instructions Activity Restrictions/Add. Instructions Additional Instructions/Restrictions: Drink plenty of fluids. Take tylenol or ibuprofen for pain or fever. Take the medications as directed. Follow up with your regular doctor. GO TO THE ER FOR ANY WORSENING SYMPTOMS If you pain worsens or continues please return and go to the er [facility]. Clinical Impressions Clinical Impression: Abdominal pain Instructions Patient Instructions: DI for Abdominal Pain-Adult, Ondansetron, Dicyclomine Print Language Print Language: Italian Discharge ED Provider: Elvis Christine [facility] General Stated complaint: abd pain Mode of Arrival: Ambulatory Source of Information: Patient Time Seen by Provider: 09/21/24 09:28 Description of Symptoms (Recalled from Triage Doc. by RN): UPPER QUAD PAIN ON RIGHT AND BACK PAIN, VOMITING HEENT Symptoms (Recalled from RN notes): No Resp Symptoms (Recalled from RN notes): No Skin Symptoms (Recalled from RN notes): No MS Symptoms (Recalled from RN notes): No Functional Status (Recalled from RN notes): WNL History of Present Illness Provider Complaint: She states that since this morning she has had epigastric pain and n/v. She denies diarrhea and constipation. She denies any fever/chills. Related Data Home Medications ?Medication ?Instructions ?Recorded ?Confirmed lisinopril 20 mg tablet 20 mg PO DAILY 09/21/24 09/21/24 Previous Rx's ?Medication ?Instructions ?Recorded dicyclomine 20 mg tablet 20 mg PO TID PRN abdominal pain 09/21/24 #20 tabs ondansetron 4 mg disintegrating 4 mg PO Q8H PRN Nausea #12 tabs 09/21/24 tablet Allergies Allergy/AdvReac Type Severity Reaction Status Date / Time celecoxib (From Celebrex) Allergy Unknown Verified 07/12/24 18:48 allergy reaction cephalexin (From Keflex) Allergy Unknown Verified 07/12/24 18:48 allergy reaction ciprofloxacin Allergy Unknown Verified 07/12/24 18:48 allergy reaction gabapentin Allergy Unknown Verified 07/12/24 18:48 allergy reaction Penicillins Allergy Unknown Verified 07/12/24 18:48 allergy reaction Worker's Comp Is this a Worker's Comp case?: No [facility] Disclaimer: The information contained in this section may have been updated after the patient was seen, as this information can be updated by other users. Medical History (Updated 09/21/24 @ 10:52 by Elvis Christine APRN) Hypoglycemia Diabetes mellitus, type 2 Asthma Hypertension Surgical History H/O gastric sleeve History of hysterectomy History of cholecystectomy History of appendectomy Social History Smoking Status: Never smoker alcohol intake: never current occupational status: other Travel in the last 8 weeks: None ROS Obtained: Yes All systems reviewed & no additional complaints except as documented Constitutional Constitutional: Denies chills, Denies fever(s) and Reports poor appetite ENT Ears, Nose, Mouth, and Throat: Denies dizziness and Denies sore throat Cardiovascular Cardiovascular: Denies dyspnea Respiratory Respiratory: Denies chest congestion, Denies cough and Denies dyspnea Gastrointestinal Gastrointestingal: Reports as per HPI Genitourinary Female Genitourinary: Denies difficulty voiding, Denies dysuria, Denies hematuria, Denies urinary frequency, Denies urinary incontinence, Denies urinary hesitancy and Denies urinary urgency Musculoskeletal Musculoskeletal: Denies arthralgias Integumentary/Breasts Skin/Breast: Denies rash Neurologic Neurologic: Denies dizziness Physical Exam General General appearance: alert and in no apparent distress Head Head exam: atraumatic and normocephalic Eye Eye exam: Present normal appearance, PERRL and EOMI ENT ENT exam: Present normal exam, normal oropharynx, mucous membranes moist, TM's normal bilaterally and normal external ear exam Neck Neck exam: Present normal inspection, full ROM and trachea midline; Absent tenderness, meningismus or lymphadenopathy Chest Chest inspection: Present normal inspection and symmetric chest wall rise; Absent tenderness, rash or abscess Respiratory Respiratory exam: Present normal lung sounds bilaterally; Absent respiratory distress, wheezes or stridor Cardiovascular Cardiovascular exam: Present regular rate and normal rhythm; Absent irregular rhythm, systolic murmur, diastolic murmur or JVD Abdominal Exam Abdominal exam: Present soft and hyperactive bowel sounds; Absent distention, tenderness, guarding, rebound, rigidity, psoas sign, obturator sign, heel tap sign, Welch's sign, Rovsing's sign or tenderness at McBurney's Point Extremities Exam Extremities exam: Present normal inspection and full ROM; Absent tenderness Back Exam Back exam: Present normal inspection and full ROM; Absent tenderness, CVA tenderness (R) or CVA tenderness (L) Neurological Exam Neurological exam: Present alert, oriented X3 and CN II-XII intact Psychiatric Psychiatric exam: Present normal affect and normal mood Skin Skin exam: Present warm, dry, intact and normal color Lymphatic Lymphatic Findings: no adenopathy Medical Decision Making Medical Records Medical records reviewed: No I reviewed the patient's medical records. Screening: Per USPSTF and CDC recommendations, given the prevalence of disease in our region, it is our hospital?s policy to screen for HIV and viral Hepatitis for all patients aged 18 and over and those with ongoing risk factors. Isaak Inquiry Pt receiving controlled substance: No Vital Signs: 09/21/24 08:44 Temperature 98.7 F Temperature Source Oral Pulse Rate [Left Radial] 71 Respiratory Rate 18 Blood Pressure [Left Arm] 149/98 H Blood Pressure Mean [Left Arm] 115 02 Sat by Pulse Oximetry 100 Lab Data Lab results reviewed: Yes I reviewed the patient's lab results. Lab Results 09/21/24 08:37: Urine Color Yellow, Urine Appearance Cloudy, Urine pH 6.5, Ur Specific [place] 1.025, Urine Protein Negative, Urine Glucose (UA) Negative, Urine Ketones Negative, Urine Blood Negative, Urine Nitrate Negative, Urine Bilirubin Negative, Urine Urobilinogen 1, Ur Leukocyte Esterase Negative 09/21/24 09:44 09/21/24 09:44 Orders (Tests/Meds): ORDERS Category Date Time Status XR ribs RT min 3V w CXR1V Stat Exams 09/21/24 08:45 Taken Amylase Stat Lab 09/21/24 08:56 Ordered Complete Blood Count Auto Diff Stat Lab 09/21/24 08:56 Ordered Comprehensive Metabolic Panel Stat Lab 09/21/24 08:56 Ordered Lipase Stat Lab 09/21/24 08:56 Ordered Radiology Data #1: Image(s): Chest Image Reviewed: Yes I reviewed the patient's radiology image and Yes I have reviewed radiologist's interpretation Preliminary Findings: No Infiltrates Seen Accession No. : [id number] Patient Name / ID : ERNESTO CHA / [id number] Exam Date : 09/21/2024 08:53:10 ( Final ) Study Comment : Sex / Age : F / 34Y Creator : VERNELL VALDES MD Dictator : Presidential Support Specialist : Comic Book Writer : VERNELL VALDES MD Approver2 : Report Date : 09/21/2024 10:26:05 My Comment : FINAL REPORT CLINICAL HISTORY: Right sided rib pain COMPARISON: None FINDINGS: RIGHT RIBS WITH CHEST Chest: The heart is normal in size. The mediastinum is normal. The lungs are clear. There is no pneumothorax. Ribs: 2 views demonstrate no acute displaced fracture. The visualized bony structures are well aligned. IMPRESSION: No acute process. No obvious rib fracture. Reviewed, Interpreted and Dictated by Vernell Valdes III, MD Transcribed by Joan Kauffman Authenticated and [facility]
[2024-09-21] MEDS: BELLADONNA ALKALOIDS 60 ML ML PO (09:40)
[2024-09-21] MEDS: ONDANSETRON 4MG ODT 8 MG SL (09:53)
[2024-09-21 10:02] LABS: Basophils # 0.1 K/mm3 (0-0.2); Basophils % 1.3 % (0.1-2.0); Eosinophils # 0.3 K/mm3 (0.0-0.4); Hematocrit 35.8 % (37.0-47.0); Hemoglobin 12.6 g/dL (12.2-16.2); Lymphocytes # 2.4 K/mm3 (0.7-4.5); Lymphocytes % 39.2 % (10-50); Mean Corpuscular HGB Conc 35.2 g/dL (31.8-35.4); Mean Platelet Volume 8.4 fl (7.4-10.4); Monocytes # 0.4 K/mm3 (0.1-1.0); Monocytes % 5.8 % (1.7-9.3); Neutrophils % 49.7 % (37.0-80.0); Platelet Count 328 K/mm3 (142-424); Red Blood Count 4.07 M/mm3 (4.20-5.40); Red Cell Distribution Width 13.4 % (11.5-17.5); White Blood Count 6.1 K/mm3 (4.8-10.8)
[2024-09-21 10:23] LABS: Albumin Level 4.6 g/dl (3.5-5.0); Chloride 108 mmol/L (98-107)
[2024-09-21 10:24] LABS: Sodium 143 mmol/L (136-145)
[2024-09-21 10:26] LABS: Alanine Aminotransferase 17 U/L (12-78); Albumin/Globulin Ratio 1.9 (1.1-1.8); Alkaline Phosphatase 54 U/L (38-126); Amylase 59 U/L (30-110); Aspartate Amino Transferase 25 U/L (14-36); Bilirubin,Total 0.6 mg/dl (0.2-1.3); Blood Urea Nitrogen 17 mg/dl (7-17); Calcium 9.4 mg/dl (8.4-10.2); Carbon Dioxide 30 mmol/L (22.0-30.0); Creatinine Clearance Estimated 106 mL/min (50-200); Estimated Glomerular Filt Rate 96 ml/min (>60); GFR (African American) 117 ML/MIN (>60); Globulin 2.4 g/dL (1.3-3.2); Glucose 95 mg/dl (74-100); Lipase 128 U/L (23-300)
[2024-09-21 11:06] VITALS: BP 149/98; PULSE 71; RESP 18; TEMP 37.1
== END 2024-09-21 11:06 | disposition home or self-care (01) ==
PROVIDERS: Emergency Provider Nurse Practitioner Family; PCP Pediatrics
DX: R10.9 Unspecified abdominal pain (principal); R11.2 Nausea with vomiting, unspecified; M54.9 Dorsalgia, unspecified; R63.8 Other symptoms and signs concerning food and fluid intake
CPT/HCPCS: 71101; 80053; 81003; 82150; 83690; 85025; 99212; G0381; Q0162

== ENCOUNTER 2025-03-08 13:50 | Outpatient (CLI) | payer MEDICAID, SELFPAY ==
[2025-03-08 15:17] LABS: Coronavirus 19, PCR Not Detected (NotDetected); Human Rhinovirus Not Detected (NotDetected); Influenza A, PCR Not Detected (NotDetected); Influenza B, PCR Not Detected (NotDetected); Respiratory Syncytial Virus Not Detected (NotDetected)
== END 2025-03-08 23:59 | disposition home or self-care (01) ==
LOC: LAB.DROPOF 03-12 11:12
PROVIDERS: PCP Pediatrics; Visit Provider Nurse Practitioner
DX: J02.9 Acute pharyngitis, unspecified (principal)
CPT/HCPCS: 87631

== ENCOUNTER 2025-10-15 16:03 | Outpatient (CLI) | payer MEDICAID, SELFPAY ==
[2025-10-15 20:16] LABS: Coronavirus 19, PCR Not Detected (NotDetected); Influenza A, PCR Not Detected (NotDetected); Influenza B, PCR Not Detected (NotDetected)
--- OUTSIDE RECORDS SUMMARY | 2025-10-16 10:13 | XMS_ITS | Clinical Summary ---
Author Organization Healthcare Address [address] [place] [address] Care Team Providers Care Refined Syrup Operator Name Role Phone Felipe Hsieh Primary Care Provider [phone] Allergies Active Allergy Reactions Criticality Noted Date Comments Celecoxib Hives Medium 09/27/2023 Cephalexin Hives Medium 09/03/2020 Ciprofloxacin Hives,Rash Medium 09/03/2020 Gabapentin Rash Low 02/27/2024 Penicillins Other - please docum ent in the comment field Low 09/27/2023 Medications Blood Glucose Monitoring Suppl (FreeStyle Lite) w/Device kit 4 Active FreeStyle Lancets 4 Active FREESTYLE LITE test strip 4 Active cyanocobalamin (Vitamin B-12) 1000 MCG/ML injection 4 Active lisinopril 20 MG tabletIndication s:Hypertension, unspecified type Take 1 tablet (20 mg) by mouth 1 (one) time each day. 30 tablet 1 4 Active insulin syringe-needle U-100 (BD Insulin Syringe U/F) 30G X 1/2 0.3 mL miscIndications: Hypoglycemia USE FOR OCTREOTIDE INJECTIONS TWICE DAILY 100 each 5 Active Continuous Glucose Sensor (FreeStyle Cl 3 Plus Sensor) misc 1 sensor every 15 days. 2 each 5 5 Active estradiol (Vagifem) 10 MCG tablet vaginal tabletIndication s:Surgical menopause,Vagina l atrophy Insert 1 tablet into the vagina nightly. Insert 1 tablet into vagina at bedtime for 2 weeks, then at bedtime twice a week. 18 tablet 3 5 Active estradiol (Vivelle-DOT) 0.075 MG/24HRIndicatio ns:Surgical menopause,Vagina l atrophy Place 1 patch on the skin 2 times a week over 96 hours. 24 patch 3 5 Active Active Problems Problem Noted Date Diagnosed Date Surgical menopause 06/07/2025 Vaginal atrophy 06/07/2025 Possible exposure to STI 12/21/2024 Acute vaginitis 03/22/2024 Assessment & Plan (03/22/2024 2:53 PM EDT): - STI testing done today - ANDREW and wet prep show clue cells and yeast - flagyl and diflucan Rx sent today - discussed avoiding wipes, soaps, sprays with fragrance. Hypoglycemia 03/02/2024 History of sleeve gastrectomy 12/01/2023 Allergic rhinitis 12/01/2023 Anal fissure 12/01/2023 Chronic cholecystitis 12/01/2023 Chronic tension-type headache, intractable 12/01 Crohn's disease of small intestine 12/01/2023 Dysthymia 12/01/2023 Periumbilical pain 12/01/2023 Gastro-esophageal reflux disease with esophagiti s 12/01/2023 Gastroesophageal reflux disease without esophagi tis 12/01/2023 Irritable bowel syndrome 12/01/2023 Kidney stone 12/01/2023 Left lower quadrant pain 12/01/2023 Leukocytosis 12/01/2023 Migraine with aura 12/01/2023 New daily persistent headache 12/01/2023 Refractory migraine without aura 12/01/2023 Gross hematuria 09/11/2023 Abnormal weight gain 08/30/2023 Acquired absence of stomach (part of) 08/30/2023 Crohn's disease, unspecified, without complicati ons 08/30/2023 Localized enlarged lymph nodes 06/15/2023 Cervicalgia 12/07/2022 Furuncle, unspecified 12/07/2022 Urinary urgency 07/21/2022 Assessment & Plan (07/21/2022 2:58 PM EDT): - UA negative, urine culture sent - discussed with Dr. Haas - needs postvoid residual volume to see if other treatment options are necessary. - continue oxybutynin - will return for PVR with Dr. Haas and to discuss plan of care. Essential hypertension 07/01/2022 Vaginal discharge 06/02/2022 Assessment & Plan (06/02/2022 11:39 AM EDT): - STI testing done today - ANDREW and wet prep show clue cells and yeast - flagyl and diflucan Rx sent today Resolved Problems Problem Noted Date Diagnosed Date Resolved Date Abdominal pain 12/01/2023 07/07/2025 Epigastric pain 12/01/2023 07/07/2025 Hematochezia 12/01/2023 07/07/2025 Pyelonephritis 12/01/2023 07/07/2025 Nocturia 10/20/2023 07/07/2025 Acute bronchitis, unspecified 09/27/2023 07/07/2025 Acute sinusitis, unspecified 06/15/2023 07/07/2025 Acute upper respiratory infe ction, unspecified 06/06/2023 07/07/2025 Heartburn 07/01/2022 07/07/2025 Family History Medical History Relation Name Comments No Known Problems Brother Hyperlipidemia Father Ricky Wren Hypertension Father Ricky Wren Sleep apnea Father Ricky Wren No Known Problems Father's Brother Breast cancer Father's Sister Lung cancer Maternal Grandfather Lung cancer Maternal Grandmother Hypertension Mother Myra Garcia No Known Problems Mother's Sister 1 drug overdose Mother's Sister 2 Mental illness Mother's Sister 3 Depression Other 1 Leukemia Other 2 Lung cancer Other 3 No Known Problems Paternal Grandmother No Known Problems Son all kids Relation Name Status Comments Brother Alive Father Ricky Wren Alive Father's Brother Alive Father's Sister Alive Maternal Grandfather Maternal Grandmother Alive Mother Myra Garcia Alive Mother's Sister 1 Alive Mother's Sister 2 Mother's Sister 3 Other 1 Other 2 Other 3 Paternal Grandfather unknown Paternal Grandmother Alive Son all kids Social History Tobacco Use Types Packs/Day Years Used Date Smoking Tobacco: Never Smokeless Tobacco: Never Tobacco Cessation:Counseling Given: Not Answered Alcohol Use Standard Drinks/Week Comments Yes 0 (1 standard drink = 0.6 oz pur e alcohol) PHQ-2 Answer Date Recorded Patient Health Questionnaire-2 Score 0 06/07/2025 PHQ-9 Answer Date Recorded Patient Health Questionnaire-9 Score 0 12/21/2024 Comments No Sex and Gender Information Value Date Recorded Sex Assigned at Not on file Legal Sex Female 6:25 PM EDT Gender Identity Not on file Sexual Orientation Not on file Last Filed Vital Signs Vital Sign Reading Time Taken Comments Blood Pressure 118/79 06/07/2025 10:21 AM EDT Pulse 77 06/07/2025 10:21 AM EDT Temperature 37.1 C (98.8 F) 06/07/2025 10:21 AM EDT Respiratory Rate 14 06/07/2025 10:2 1 AM EDT Oxygen Saturation 100% 06/07/2025 10: 21 AM EDT Inhaled Oxygen Concentration - - Weight 58.8 kg (129 lb 10.1 oz) 025 10:21 AM EDT Height 165.1 cm (5' 5 ) 06/07/2025 10:2 1 AM EDT Body Mass Index 21.57 06/07/2025 10:21 AM EDT Plan of Treatment Health Maintenance Due Date Last Done Comments [facility]-HIV Screening 1991 [facility]-Hepatitis C Screening 1991 [facility]-Infant/Child/Adol SDOH Screenings 1991 [facility]-Varicella Vaccines (1 of 2 - 13+ 2-dose series) 01/17/2004 [facility]- SDOH Screenings 2009 [facility]-Adult SDOH Screenings 2009 [facility]-DTaP,Tdap,and Td Vaccines (1 - Tdap) 2010 [facility]-Hepatitis B Vaccines (1 of 3 - 19+ 3-dose series) 2010 [facility]-[id number] Vaccine (3 - Pfizer risk series) 11/18/2021 10/21/2021, 09/22/2021 [facility]-Influenza Vaccine (#1) 2025 09/10/2024 [facility]-Depression Screening 06/07/2026 025, 12/21/2024 [facility]-Zoster Vaccines (1 of 2) 2041 [facility]-Cervical Cancer Screening Discontinued [facility]-HPV/Cotest Discontinued 12/01/2023 [facility]-Pap Smear Discontinued 12/01/2023 HPV Vaccines (No Doses Required) Completed [facility]-HIB Vaccines Aged Out No longer e ligible based on patient's age to complete this topic [facility]-Hepatitis A Vaccines Aged Out No longer eligible based on patient's age to complete this topic [facility]-IPV Vaccines Aged Out No longer e ligible based on patient's age to complete this topic [facility]-Pneumococcal Vaccine: Pediatrics (0 to 5 Years) and At-Risk Patients (6 to 49 Years) Aged Out No longer eligible b ased on patient's age to complete this topic [facility]-Rotavirus Vaccines Aged Out No lo nger eligible based on patient's age to complete this topic Procedures Procedure Name Priority Date/Time Associated Diagnosis Comments PAP TEST - CYTOLOGY Routine 12/01/2023 10:12 AM EST Encounter for gynecological examination (general) (routine) without abnormal findings from Last 3 Months or Most Recently Relevant to Health Maintenance Results * Pap Test (12/01/2023 10:12 AM EST) Case Report Cytology Case: [id number] Authorizing Provider: Jonna Albright APRN, DNP Collected: 12/01/2023 1012 Ordering Location: Obstetrics & Gynecology Received: 12/02/2023 0929 First Screen: Love Tsang Specimen: ThinPrep Pap Test, Liquid-Based Vaginal 12/14/2023 4:15 PM EST [facility] Interpretation NEGATIVE FOR INTRAEPITHELIAL LESION OR MALIGNANCY 12/14/2023 4:15 PM EST [facility] at 1615 EST Specimen Adequacy Satisfactory for evaluation. Slide examined with [employer] ThinPrep Imaging System but manually screened for technical reasons. 12/14/2023 4:15 PM EST [facility] Cervical cytology is a screening test primarily for squamous cancers and precursors and has associated false negative and positive results. New technologies such as liquid based sampling may decrease but will not eliminate all false negative results. Regular screening and follow-up of unexplained clinical signs and symptoms are recommended to minimize false negative results. Please see the ASCCP website (www.asccp.org)fo r followup recommendations. If HPV testing was requested, correlation with the results is suggested (please call Microbiology at [phone] for results). 12/14/2023 4:15 PM EST [facility] Menstrual Status Unknown 12/14/19 4:15 PM EST [facility] History of Hysterectomy Hysterectomy without remaining cervix 12/14/2023 4:15 PM EST [facility] Contraceptive History Not Applicable 12/14/2023 4:15 PM [facility] Screening Type Routine Screen 2023 4:15 PM EST [facility] High Risk? No 12/14/2023 4:15 PM EST [facility] HPV Testing Requested? Request HPV Testing Regardless of Pap Test Findings 12/14/2023 4:15 PM EST [facility] Previous Cancer History No 12/14/2023 4:[address] [facility] Clinical Information Z01.419 - Encounter for gynecological examination (general) (routine) without abnormal findings [ICD-10-CM] 12/14/2023 4:[address] [facility] Swab Vaginal structure / Unknown Non-blood Collection / Unknown 12/01/2023 10:12 AM EST 12/02/2023 9:29 AM EST Jonna Albright APRN LAB CYTOLOGY ORDERABLES Final Result [facility] [address] [place] [address] from Last 3 Months or Most Recently Relevant to Health Maintenance Insurance Care Teams Refined Syrup Operator Relationship Specialty Start Date End Date Felipe Hsieh [id number] PCP - General 11/09/24
== END 2025-10-15 23:59 | disposition home or self-care (01) ==
LOC: LAB.DROPOF 10-16 10:10
PROVIDERS: PCP Pediatrics; Visit Provider Nurse Practitioner Family
DX: J06.9 Acute upper respiratory infection, unspecified (principal)
CPT/HCPCS: 87631